=== PATIENT | male | born 1960 | race Caucasian/White ===

== ENCOUNTER 2023-06-10 16:04 | Outpatient (OUT) | payer BC, SELFPAY ==
[2023-06-10 17:29] LABS: Thyroid Stimulating Hormone 0.941 uIU/mL (0.358-3.740)
[2023-06-13 17:12] LABS: Thyroglobulin Antibody <1.0 IU/mL (0.0-0.9)
[2023-06-20 00:07] LABS: Thyroglobulin (TG-RIA) <2.0 ng/mL (.)
== END 2023-06-10 16:05 | disposition home or self-care (01) ==
LOC: LAB 16:08
PROVIDERS: Visit Provider Radiology Radiation Oncology
DX: Z85.850 Personal history of malignant neoplasm of thyroid (principal)
CPT/HCPCS: 36415; 84432; 84436; 84443; 86800

== ENCOUNTER 2024-01-16 08:46 | Outpatient (OUT) | payer BC, SELFPAY ==
--- NOTE | 2024-01-16 08:57 | ECG_ITS ---
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
[2024-01-16 09:38] LABS: Basophils Percent Auto 0.6 % (0.2-2.0); Eosinophils Absolute Auto 0.1 10^3/uL (0.0-0.7); Eosinophils Percent Auto 1.6 % (0.9-7.0); Hematocrit 47.3 % (42.0-54.0); Hemoglobin 15.8 g/dL (14.0-18.0); Immature Granulocytes Abs Auto 0.02 10^3/uL (0.00-0.03); Immature Granulocytes Pct Auto 0.3 % (0.0-0.5); Lymphocytes Percent Auto 16.1 % (20.5-60.0); Mean Corpuscular HGB Conc 33.4 g/dL (29.9-35.2); Mean Corpuscular Hemoglobin 29.2 pg (25.9-34.0); Mean Corpuscular Volume 87.4 fL (80.0-94.0); Mean Platelet Volume 11.1 fL (9.5-13.5); Monocytes Absolute Auto 0.4 10^3/uL (0.3-0.8); Monocytes Percent Auto 6.7 % (1.7-12.0); Neutrophils Absolute Auto 4.7 10^3/uL (1.4-6.5); Neutrophils Percent Auto 74.7 % (43.0-75.0); Platelet Count 210 10^3/uL (150-450); Red Blood Count 5.41 10^6/uL (4.70-6.10); White Blood Count 6.3 10^3/uL (4.0-11.0)
== END 2024-01-16 08:47 | disposition home or self-care (01) ==
LOC: PST 08:47
PROVIDERS: Visit Provider Otolaryngology
DX: Z01.810 Encounter for preprocedural cardiovascular examination (principal); Z01.812 Encounter for preprocedural laboratory examination; H69.93 Unspecified Eustachian tube disorder, bilateral
CPT/HCPCS: 36415; 85025; 93005

== ENCOUNTER 2024-01-31 09:35 | Day surgery (SDC) | payer BC, SELFPAY ==
[2024-01-16 09:25] VITALS: BP 156/92; PULSE 71; RESP 20; TEMP 36.3; O2SAT 95; BMI 40.5
[2024-01-31] VITALS (11 sets, daily range): BP systolic 106–156; BP diastolic 67–102; PULSE 60–72; TEMP 36.1–36.2; O2SAT 91–97; BMI 40.3
--- NOTE | 2024-01-31 | OP_ITS ---
OPERATION DATE: 01/31/2024 PRIMARY CARE PHYSICIAN: Ross Campoverde M.D. SURGEON: Adelina Godoy M.D. PREOPERATIVE DIAGNOSIS: Eustachian tube dysfunction. POSTOPERATIVE DIAGNOSIS: Eustachian tube dysfunction. PROCEDURE: Bilateral myringotomy and tubes with microdissection, placement of T-tubes and a nasal endoscopy. ANESTHESIA: General endotracheal. COMPLICATIONS: None. FINDINGS: Bilateral dry middle ears and no nasopharyngeal pathology evident. INDICATIONS: This 63-year-old man presented with eustachian tube dysfunction, unresponsive to aggressive medical management. He was brought to the OR for placement of T-tubes as well as to examine the nasopharynx and ensure that there was no carcinoma responsible for his eustachian tube dysfunction. PROCEDURE: Patient identified in the holding area and taken back to the OR where he was placed in the supine position. After induction of general anesthesia, Afrin soaked pledgets were placed in each side of the nose and attention was turned to the left ear. The ear was approached with the otomicroscope. An anterior radial myringotomy was performed and modified Jairo?s T-tube was folded and inserted in the middle ear using microdissection. Attention was then turned to the right ear and the same procedure performed. Once this was completed, the Afrin soaked pledgets were removed, and a 0 degree nasal endoscope was used to examine the nasopharynx bilaterally. There was no abnormality found. The patient was then awakened and taken to the recovery room in good condition. NEGAR
[2024-01-31] MEDS: LACTATED RINGER'S SOLUTION 1,000 ML 50 ML IV (09:52)
[2024-01-31] MEDS: SCOPOLAMINE 1 MG/3 DAYS TRANSDERM PATCH 1 PATCH TD (11:51)
[2024-01-31] MEDS: OXYMETAZOLINE HCL 0.05% NASAL SPRAY 30 SPRAY NS (12:49)
== END 2024-01-31 14:20 | disposition home or self-care (01) ==
PROVIDERS: Visit Provider Otolaryngology
PROC: (CPT 00126; principal; 2024-01-31 10:40)
PROC: (CPT 00126; 2024-01-31 10:40)
DX: H69.83 Other specified disorders of Eustachian tube, bilateral (principal); Z85.850 Personal history of malignant neoplasm of thyroid; H90.6 Mixed conductive and sensorineural hearing loss, bilateral; E89.0 Postprocedural hypothyroidism
CPT/HCPCS: 00126; 00160; 31231; 69436; 36415; J1094; J2704

== ENCOUNTER 2024-06-13 15:00 | Outpatient (OUT) | payer BC, SELFPAY | END 2024-06-13 15:01 | disposition home or self-care (01) | LOC: LAB 15:02 | PROVIDERS: Visit Provider Radiology Radiation Oncology | DX: Z85.850 Personal history of malignant neoplasm of thyroid (principal) | CPT/HCPCS: 36415; 84432; 84436; 84443; 86800 ==

== ENCOUNTER 2025-06-25 08:32 | Outpatient (OUT) | payer BC, SELFPAY ==
--- OUTSIDE RECORDS SUMMARY | 2025-06-25 08:37 | XMS_ITS | Encounter Summary ---
Author Organization [facility] Address [address] [address] Care Team Providers Care Mechanical Equipment Test Engineer Name Role Phone Ross Campoverde MD Primary Care Provider [phone] Ross Campoverde MD Unavailable [phone] Unallocated, Noms Provider Primary Care Provi ziggy Encounter Details Date Type Department Care Team (Late st Contact Info) Description 01/23/2024 Abstract [facility] [address] [place] [address] Aminata Fall MA Social History Tobacco Use Types Packs/Day Years Used Date Smoking Tobacco: Never Smokeless Tobacco: Never Alcohol Use Standard Drinks/Week Comments Yes 0 (1 standard drink = 0.6 oz pur e alcohol) PHQ-2 Answer Date Recorded Patient Health Questionnaire-2 Score 0 11/24/2023 Sex and Gender Information Value Date Recorded Sex Assigned at Not on file Legal Sex Male 6:53 PM EDT Gender Identity Not on file Sexual Orientation Not on file documented as of this encounter Plan of Treatment Not on file documented as of this encounter Visit Diagnoses Not on filedocumented in this encounter Care Teams Mechanical Equipment Test Engineer Relationship Specialty Start Date End Date Ross Campoverde MD [address] [address] PCP - General Family Medicine 12/02/23 03/06/24 Ross Campoverde MD [address] [address] PCP - Zoila Donahue 01/23/24 Unallocated, Noms Anay, [place] [address] PCP - General Family Medicine 03/07/24 documented as of this encounter
--- OUTSIDE RECORDS SUMMARY | 2025-06-25 08:37 | XMS_ITS | Encounter Summary ---
Author Organization [facility] Address [address] [place] [address] Care Team Providers Care Resource Forester Name Role Phone Ross Campoverde MD Primary Care Provider [phone] Ross Campoverde MD Unavailable [phone] Unallocated, Noms Provider Primary Care Provi ziggy Encounter Details Date Type Department Care Team (Late st Contact Info) Description 01/16/2024 Clinisync Result Encounter [facility] External Department Unsolicited Long Godoy MD [address] [facility] [address] [place] [address] Social History Tobacco Use Types Packs/Day Years [...] on file documented as of this encounter Procedures Procedure Name Priority Date/Time Associated Diagnosis Comments ECG 12-LEAD 01/16/2024 9:25 AM EDT documented in this encounter Results * ECG 12-LEAD (01/16/2024 9:25 AM EDT) Anatomical Region Laterality Modality Other 01/16/2024 9:25 AM EDT Narrative 01/16/2024 10:44 PM EDT The [address] [address] Electrocardiograph Report Signed Patient: Jose Luis Hernandez MR#: [id number] : 1960 Acct:[id number] Age/Sex: 63 / M ADM Date: 01/16/24 Loc: PST Attending Dr: Long Godoy M.D. Ordering Physician: Long Godoy M.D. 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 Signed By: 01/16/244 DD/ 0925 TD/TT: Fish Cake Maker: Procedure Note Radiology, Radiologist, MD - 01/16/[address] [address] Electrocardiograph Report Signed Patient: Jose Luis Hernandez RMR#: [id number] : 1960cct:[id number] Age/Sex: 63 / MADM Date: 01/16/24 Loc: PST Attending Dr: Long Godoy M.D. Ordering Physician: Long Godoy M.D. 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 Signed By:01/16/242243 DD/ 4 TD/TT: Fish Cake Maker: us Long Godoy MD [facility] Final Resul t documented in this encounter Visit Diagnoses Not on filedocumented in this encounter Care Teams Resource Forester Relationship Specialty Start Date End Date Ross Campoverde MD [address] [place] [address] PCP - General Family Medicine 12/02/23 03/06/24 Ross Campoverde MD [address] [place] [address] (Fax) PCP - Niles [employer] 01/23/24 Unallocated, Noms ProviderMD [address] [place] [address] PCP - General Family Medicine 03/07/24 documented as of this encounter
--- OUTSIDE RECORDS SUMMARY | 2025-06-25 08:38 | XMS_ITS | Clinical Summary ---
Author Organization [facility] Address [address] [place] [address] Care Team Providers Care Sql Database Administrator Name Role Phone Rima Martinez MD Primary Care Provider [phone] Allergies Active Allergy Reactions Criticality Noted Date Comments Penicillins Unknown 11/01/2014 Medications levothyroxine (SYNTHROID) 175 mcg tabletIndication s:Malignant neoplasm of thyroid gland (HCC) Take 1 tablet by mouth daily before breakfast. 90 tablet 3 05/15/2025 Active Active Problems Problem Noted Date Diagnosed Date History of thyroid cancer 06/12/2015 Encounters Date Type Department Care Team Description 05/15/2025 Refill Radiation Oncology [address] [place] [address] [place] [address] Chris Lugo MD Refill Request from Last 3 Months Social History Tobacco Use Types Packs/Day Years Used Date Smoking Tobacco: Never Smokeless Tobacco: Current Tobacco Cessation:Ready to Q uit: Not Asked; Counseling Given: Not Answered Alcohol Use Standard Drinks/Week Comments Not Asked 0 (1 standard drink = 0.6 oz pur e alcohol) PHQ-2 Answer Date Recorded PHQ-2 score 0 07/02/2024 Area Deprivation Index Answer Date Luca rded National Score (1-100), lower number is lower ri sk 73 06/20/2023 State Score (1-10), lower number is lower risk 6 06/20/2023 Data from: https://www.neighborhoodatlas.medicine.[facility].edu/. Last address used for calculation [address] 06/20/2023 Sex and Gender Information Value Date Recorded Sex Assigned at Not on file Legal Sex Male 10:13 AM EST Gender Identity Not on file Sexual Orientation Not on file Last Filed Vital Signs Vital Sign Reading Time Taken Comments Blood Pressure 152/88 07/02/2024 9:10 AM EDT Pulse 57 07/02/2024 9:10 AM EDT Temperature 36.4 C (97.5 F) 07/02/2024 9:10 AM EDT Respiratory Rate 16 07/02/2024 9:10 AM EDT Oxygen Saturation 97% 07/02/2024 9:10 AM EDT Inhaled Oxygen Concentration - - Weight 139.1 kg (306 lb 10.6 oz) 07/02/2024 9:10 AM EDT Height - - Body Mass Index - - Plan of Treatment Upcoming Encounters Date Type Department Care Team (Late st Contact Info) Description 07/01/2025 9:00 AM EDT Office Visit Radiation Oncology [address] [place] [address] Chris Lugo MD [address] [place] [address] 1 year follow up - labs at [facility] Due Date Last Done Comments Anxiety Screening 1977 Depression Screening 1977 Hepatitis C Screening 1977 DTaP,Tdap,Td Vaccine (1 - Tdap) [address] Colonography 2004 Cologuard (FIT-DNA) 2004 Colonoscopy 2004 Colorectal Cancer Screening 2004 Diabetes Screening 2004 Fecal Occult Blood 2004 Prostate Cancer Screening Discussion 2004 Sigmoidoscopy 2004 Pneumococcal Vaccine: 50+ (1 of 1 - PCV) 2009 Shingrix Vaccine (1 of 2) 2009 Advance Directive Discussion 10/24/2024 Influenza Vaccine (#1) 2025 RSV Vaccine (1 - 1-dose 75+ series) 2034 Insurance BLUE ACCESS PPO Care Teams Sql Database Administrator Relationship Specialty Start Date End Date Rima Martinez MD [address] [place] [address] PCP - General Family Medicine 12/15/11
--- OUTSIDE RECORDS SUMMARY | 2025-06-25 08:38 | XMS_ITS | Clinical Summary ---
Author Organization [facility] Address [address] [place] [address] Care Team Providers Care Senior Linux Systems Administrator Name Role Phone Ross Campoverde MD Unavailable [phone] Unallocated, Noms Provider Primary Care Provi ziggy Allergies Active Allergy Reactions Criticality Noted Date Comments Penicillins 11/01/2014 Other Reaction(s): Unknown Medications levothyroxine (Synthroid, Levoxyl) 175 MCG tablet Take 175 mcg by mouth in the morning. Take before meals. Active Active Problems Problem Noted Date Diagnosed Date ETD (Eustachian tube dysfunction), bilateral Mixed hearing loss, bilateral 12/05/2023 History of thyroid cancer 06/12/2015 Immunizations Immunization Administration Dates Next Due Pfizer Purple Cap SARS-CoV-2 Vaccination 021,01/30/2021,01/09/2021 Family History Medical History Relation Name Comments Diabetes Father Macular degeneration Mother Relation Name Status Comments Father Mother Alive Social History Tobacco Use Types Packs/Day Years Used Date Smoking Tobacco: Never Smokeless Tobacco: Never Tobacco Cessation:Counseling Given: Not Answered Alcohol Use Standard Drinks/Week Comments Yes 0 [...] Sign Reading Time Taken Comments Blood Pressure 151/86 08/28/2024 7:58 AM EST Pulse - - Temperature - - Respiratory Rate - - Oxygen Saturation - - Inhaled Oxygen Concentration - - Weight 140 kg (308 lb) 08/28/2024 7:58 AM EST Height 182.9 cm (6') 08/28/2024 7:58 AM EST Body Mass Index 41.77 08/28/2024 7:58 AM EST Plan of Treatment Health Maintenance Due Date Last Done Comments CT Colonography 1960 Colonoscopy 1960 Colorectal Cancer Screening 1960 FIT-DNA 1959 FIT 1959 FOBT 1960 Sigmoidoscopy 1960 Pneumococcal Vaccine: 65+ Years (1 of 1 - PCV) 009 Influenza Vaccine (#1) 2025 Insurance BC[employer] Member Subscriber Plan / Payer (Ef fective 2023-Present) Name:Jose Luis Hernandez Relation to Subscriber:Self Name:Jose Luis Hernandez Payer ID:Not on file Type:Not on file Address: [place] [phone] Care Teams Senior Linux Systems Administrator Relationship Specialty Start Date End Date Ross Campoverde MD [address] [place] [address] PCP - Altha Commercial 01/23/24 Unallocated, Noms Anay, [address] [facility] [place] [address] PCP - General Family Medicine 03/07/24
--- OUTSIDE RECORDS SUMMARY | 2025-06-25 08:47 | XMS_ITS | CCD ---
Author Organization [facility] Care Team Providers Care Health Services Rn Name Role Phone DR ROB LUGO Attending Unavailable HEYDI, DR ROB Correa Consulting Unavailable DR ROB LUGO Admitting Unavailable DR RIMA MARTINEZ Primary Care Unavailable Michelle CLARK, Rima Hawkins Primary Care Provider Rima Martinez MD Primary Care Provider Unavailable Primary Care Provider Ross Bonilla MD Primary Care Provider [phone] Rima Martinez MD Primary Care Provider RIMA MARTINEZ Primary Care Unavailable Chris LUGO Referring Unavailable Chris LUGO Attending Unavailable Ross Holliday MD Unavailable Unallocated , Benjamins Provider Primary Care Provi ziggy ROSS HOLLIDAY Attending Unavailable ROSS HOLLIDAY Attending Unavailable KAREEM DE LA O Attending Unavailable ROSS HOLLIDAY Referring Unavailable ADELINA WEEKS Attending Unavailable ADELINA WEEKS Attending Unavailable ROSA COYNE Attending Unavailable ISABELLEMISADELINA Attending Unavailable KAREEM DE LA O A Attending Unavailable ISABELLEMISJOYADELINA H Attending Unavailable ISABELLEMISJOYADELINA Gurvinder Attending Unavailable ISABELLEMISADELINA Attending Unavailable Allergies Allergy Classification Reported Allergen(s) Allergy Type Date of Onset Reaction(s) Facility (6 sources) Penicillins; Translations: [PENICILLINS] Drug Allergy 11-01-2014 Unknown [facility] (9 sources) Penicillins Drug Allergy 11-01-2014 [facility] (1 source) Penicillins Drug Allergy 11-01-2014 Unknown [facility] Medications Current Medications Medication Drug Class(es) Dates Sig (Normalized) Sig (Original) cefdinir 300 mg oral capsule (3 sources) Cephalosporin Antibacterial Start: 11-20-2023 End: 12-05-2023 take 1 capsule by mouth in the morning cefdinir (Omnicef) 300 MG capsule Take 300 mg by mouth in the morning and 300 mg before bedtime. 0 11/20/2023 12/05/2023 Discontinued (Therapy completed) cefuroxime 500 mg oral tablet (2 sources) Cephalosporin Antibacterial Start: 12-01-2023 End: 12-08-2023 take 1 tablet by mouth in the morning cefuroxime (Ceftin) 500 MG tablet Indications: Other infective acute otitis externa of left ear Take 1 tablet (500 mg) by mouth in the morning and 1 tablet (500 mg) before bedtime. Do all this for 7 days. 14 tablet 0 12/01/2023 12/08/2023 Active ciprofloxacin 3 mg/ml / dexamethasone 1 mg/ml otic suspension (5 sources) Corticosteroid, Quinolone Antimicrobial Start: 08-20-2024 End: 08-30-2024 ciprofloxacin-dexA METHasone (CiproDEX) otic suspension Indications: Chronic myringitis of right ear Administer 4 drops into each ear in the morning and 4 drops before bedtime. Do all this for 10 days. 7.5 mL 08/20/2024 08/30/2024 Active fluticasone propionate 0.05 mg/actuat metered dose nasal spray (2 sources) Corticosteroid Start: 12-05-2023 End: 12-04-2024 take 2 spray(s) nasal route in the morning fluticasone (Flonase) 50 MCG/ACT nasal spray Indications: OME (otitis media with effusion), bilateral Administer 2 sprays into each nostril in the morning. Shake gently. Before first use, prime pump. After use, clean tip and replace cap.. 16 g 11 12/05/2023 12/04/2024 Active levothyroxine sodium 0.175 mg oral tablet (19 sources) l-Thyroxine Start: 06-30-2021 End: 05-15-2025 take 1 tablet by mouth once daily before breakfast levothyroxine (SYNTHROID) 175 mcg tablet Indications: Malignant neoplasm of thyroid gland (HCC) Take 1 tablet by mouth daily before breakfast. 90 tablet 3 05/15/2025 Active Comment on above: Take 1 tablet by valdez th daily before breakfast. predniSONE 20 mg oral tablet (2 sources) Start: 12-05-2023 End: 12-11-2023 take 1 tablet by mouth in the morning predniSONE (Deltasone) 20 MG tablet Indications: OME (otitis media with effusion), bilateral Take 1 tablet (20 mg) by mouth in the morning and 1 tablet (20 mg) before bedtime. Do all this for 6 days. 12 tablet 0 12/05/2023 12/11/2023 Active Completed/Discontinued Medications Medication Drug Class(es) Dates Sig (Normalized) Sig (Original) hydrocortisone 10 mg/ml / neomycin 3.5 mg/ml / polymyxin b 17670 unt/ml otic suspension (1 source) Aminoglycoside Antibacterial, Polymyxin-class Antibacterial, Corticosteroid Start: 11-24-2023 End: 12-01-2023 neomycin-polymyx in-hydrocortison e (Cortisporin) [id number] otic suspension Indications: Other infective acute otitis externa of both ears Administer 3-4 drops into each ear in the morning and 3-4 drops in the evening and 3-4 drops before bedtime. Do all this for 7 days. 10 mL 0 11/24/2023 12/01/2023 Problems Active Problems Problem Classification Problem Date Documented Date Episodic/Chronic Cancer of thyroid (4 sources) Malignant tumor of thyroid gland; Translations: [Malignant neoplasm of thyroid gland] Chronic Other ear and sense organ disorders (10 sources) Mixed conductive and sensorineural hearing loss, bilateral; Translations: [Mixed conductive and sensorineural hearing loss, bilateral] Onset: 12-05-2023 12-05-2023 Chronic Other ear and sense organ disorders (2 sources) Bilateral hearing loss; Translations: [Unspecified hearing loss, bilateral] 08-20-2024 Chronic Other ear and sense organ disorders (2 sources) Chronic right myringitis; Translations: [Chronic myringitis, right ear] 08-20-2024 Chronic Other ear and sense organ disorders (2 sources) Bilateral chronic tympanitis; Translations: [Chronic myringitis, bilateral] 08-28-2024 Chronic Other ear and sense organ disorders (1 source) Acute infective otitis externa; Translations: [Other infective otitis externa, bilateral] 11-24-2023 Episodic Other injuries and conditions due to external causes (4 sources) Foreign body in left ear; Translations: [Foreign body in left ear, initial encounter] 08-20-2024 Episodic Past or Other Problems Problem Classification Problem Date Documented Da te Episodic/Chronic Cancer of thyroid (20 sources) Personal history of malignant neoplasm of thyroid; Translations: [History of malignant neoplasm of thyroid] Onset: 06-12-2015 Episodic Otitis media and related conditions (11 sources) Acute suppurative otitis media without spontaneous rupture of ear drum; Translations: [Acute suppurative otitis media without spontaneous rupture of ear drum, bilateral] Onset: 01-09-2024 11-24-2023 Episodic Results Test Name Value Interpretation Reference Range Facility CNOVon 07-02-2024 CNOV Office Visit (ADAIRA ) RICARDO HERNANDEZ ([id number]) 1960 M Date Time Provider Department 07/02/24 9:00 AM Chris LUGO During your visit today, we recorded the following information about you: Temperature Pulse Respiration Blood pressure 97.5 degrees 57/minute 16/minute 152/88 Weight 139.1 kg Chris Lugo MD 07/09/2024 8:15 AM Signed Radiation Oncology - Follow Up Note PATIENT NAME: Ricardo Hernandez PATIENT DIAGNOSIS: Papillary thyroid carcinoma and prior thyroidectomy and I-131 ablative therapy in August 2008. INTERVAL HISTORY: Doing well denies new problems. LABORATORY: 07/10/17 thyroglobulin less than 0.2. Thyroid antibody 6.4. T4 12.3 TSH 0.171 06/27/18 thyroglobulin less than 0.2. Thyroid antibody <1. freeT4 1.33 TSH 0.103 07/06/19 thyroglobulin less than 2.0 Thyroid antibody <1. T4 10.5 TSH 0.097 05/28/20 thyroglobulin less than 0.1. Thyroid antibody <1. T4 10.8 TSH 0.065 05/28/21 thyroglobulin less than 2.0. Thyroid antibody <1.0 T4 9.9TSH 0.206 thyroglobulin less than 2.0. Thyroid antibody <1.0 T4 11.0TSH 0.157 thyroglobulin less than 2.0. T4 8.6 TSH 0.941 06/13/24 thyroglobulin <0.1 Thyroid antibody <1.0 T4 11.2 TSH 0.13 ALLERGIES: ALLERGIES Allergen Reactions Penicillins Unknown MEDICATIONS: levothyroxine (SYNTHROID) 175 mcg tablet Take 1 tablet by mouth daily before breakfast. Review of Systems: PAIN ASSESSMENT: Negative for pain, history of chronic pain, or current treatment for a chronic pain condition. GENERAL: has had some wt loss-chnge diet and activity, no malaise or fevers. NECK: Negative for goiter, pain or significant neck swelling RESPIRATORY: Negative for cough, hemoptysis, wheezing, COPD, dyspnea or shortness of breath ENDOCRINE: Negative for cold or heat intolerance, polyuria or polydipsia. NEURO: No history of headaches, syncope, paralysis, seizures or tremors The remainder of the review of systems is negative. review of systems is negative. PHYSICAL EXAM: VS: BP 152/88 Pulse (!) 57 Temp 36.4 ?C (97.5 ?F) Resp 16 Wt (!) 139.1 kg (306 lb 10.6 oz) SpO2 97% KPS: 100 General Appearance: Well appearing, alert, in no acute distress, well-hydrated, well nourished.. Skin: Skin color, texture, turgor normal, no suspicious rashes or lesions. Neck: Negative findings: no asymmetry, masses, or scars, no adenopathy. ASSESSMENT AND PLAN: History of thyroid carcinoma with prior thyroidectomy and postoperative I-131 ablative treatment. Patient continues to do very well. Thyroglobulin undetectable. Appropriate TSH suppression/T4 replacement. Plan to see him back in follow-up in one year with thyroglobulin. Signed by: Chris Lugo MD cc: Rima Martinez MD [address] [place] [address] Portions of the above note extracted and edited from previous visit as well as active information included in the EMR. Referring Provider: Chris LUGO [[id number]] Allergies As of Date: 07/02/2024 Noted Allergy Reaction PENICILLINS 11/01/2014 16 - Unknown Date Reviewed: 07/02/2024 Reviewed by: Anne Lester RN - Fully Assessed Reason for Visit: Thyroid Cancer [879] Primary Visit Diagnosis:History of thyroid cancer [Z85.850] Order(s):T4/THYROXINE [SQT4] Order #: [id number] FUTURE THYROID STIMULATING HORMONE [SQTSH] Order #: [id number] FUTURE THYROGLOBULIN, SERUM WITH REFLEX TO IA OR LC-MS/MS [SQTHYRORF] Order #: [id number] FUTURE Prescriptions as of 07/09/2024 - levothyroxine (SYNTHROID) 175 mcg tablet Take 1 tablet by mouth daily before breakfast. Problem List As Of Date 07/02/2024 Noted Resolved History of thyroid cancer [Z85.850] 06/12/2015 Disposition: Return in about 1 year (around 07/02/2025). Follow-up and Disposition History for Encounter Date Provider Department Center 07/02/2024 [id number] LUGO [facility] Encounter Status:Closed by Chris LUGO on 07/09/24 Normal [facility] THYROGLOBULINon 06-12-2022 Thyroglobulin <2.0 Normal [facility] Comment on above: Result Comment: This test was developed and its performance characteristics determined by [facility]. It has not been cleared or approved by the Food and Drug Administration. Reference Range: Pubertal Children and Adults: <40 According to the National Academy of Clinical Biochemistry, the reference interval for Thyroglobulin (TG) should be related to euthyroid patients and not for patients who underwent thyroidectomy. TG reference intervals for these patients depend on the residual mass of the thyroid tissue left after surgery. Establishing a post-operative baseline is recommended. The assay quantitation limit is 2.0 ng/mL. Performed By: #### T KARINE #### [facility] [address] [place] [address] Dr. Angelita Kendall THYROGLOBULIN ABon Thyroglobulin Antibody <1.0 Normal 0.0-0.9 [facility] Comment on above: Result Comment: Thyr oglobulin Antibody measured by [facility] Methodology Performed By: #### T HYGAB #### [facility] [address] [id number] Angelita Kendall T4 [facility]on 06-05-2022 T4 [Mass/Vol] 11.0 ug/dL Normal 4.5-12.0 [facility] Comment on above: Performed By: #### T 4LC #### [facility] [address] [place], [place] [address] Dr. Angelita Kendall TSHon 06-04-2022 TSH 0.157 uIU/mL Critically low 0.358-3.740 [facility] Comment on above: Performed By: #### T SH #### [facility] [address] [place] [address] Dr. Angelita Kendall Vital Signs Date Time Vital Sign Value Performing Clinician Faci lity 08-28-2024 07:58-0500 Body height 182.9 cm Adelina Weeks MD Work Phone: [facility] 08-28-2024 07:58-0500 Body mass index (BMI) [Ratio] 41.77 kg/m2 Adelina Weeks MD Work Phone: [facility] 08-28-2024 07:58-0500 Body weight 139.71 kg Adelina Weeks MD Work Phone: [facility] 08-28-2024 07:58-0500 Diastolic blood pressure 86 mm[Hg] Adelina Weeks MD Work Phone: [facility] 08-28-2024 07:58-0500 Systolic blood pressure 151 mm[Hg] Adelina Weeks MD Work Phone: [facility] 08-20-2024 13:03-0400 Body height 182.9 cm Adelina Weeks MD Work Phone: [facility] 08-20-2024 13:03-0400 Body mass index (BMI) [Ratio] 42.31 kg/m2 Adelina Weeks MD Work Phone: [facility] 08-20-2024 13:03-0400 Body weight 141.52 kg Adelina Weeks MD Work Phone: [facility] 08-20-2024 13:03-0400 Diastolic blood pressure 77 mm[Hg] Adelina Weeks MD Work Phone: [facility] 08-20-2024 13:03-0400 Systolic blood pressure 128 mm[Hg] Adelina Weeks MD Work Phone: [facility] 07-02-2024 09:10-0400 Body temperature 97.5 [degF] KANWAL Lugo MD Work Phone: [facility] 07-02-2024 09:10-0400 Body weight 139.1 kg KANWAL Lugo MD Work Phone: [facility] 07-02-2024 09:10-0400 Diastolic blood pressure 88 mm[Hg] KANWAL Lugo MD Work Phone: [facility] 07-02-2024 09:10-0400 Heart rate 57 /min KANWAL Lugo MD Work Phone: [facility] 07-02-2024 09:10-0400 Respiratory rate 16 /min KANWAL Lugo MD Work Phone: [facility] 07-02-2024 09:10-0400 SaO2% (BldA) [Mass fraction] 97 % KANWAL Lugo MD Work Phone: [facility] 07-02-2024 09:10-0400 Systolic blood pressure 152 mm[Hg] KANWAL Lugo MD Work Phone: [facility] 12-05-2023 08:22-0500 Body height 182.9 cm Adelina Weeks MD Work Phone: [facility] 12-05-2023 08:22-0500 Body mass index (BMI) [Ratio] 41.23 kg/m2 Adelina Weeks MD Work Phone: [facility] 12-05-2023 08:22-0500 Body weight 137.89 kg Adelina Weeks MD Work Phone: [facility] 12-05-2023 08:22-0500 Diastolic blood pressure 93 mm[Hg] Adelina Weeks MD Work Phone: [facility] 12-05-2023 08:22-0500 Systolic blood pressure 157 mm[Hg] Adelina Weeks MD Work Phone: [facility] 11-24-2023 15:46-0500 Body height 182.9 cm Ross Holliday MD Work Phone: [facility] 11-24-2023 15:46-0500 Body mass index (BMI) [Ratio] 41.3 kg/m2 Ross Holliday MD Work Phone: [facility] 11-24-2023 15:46-0500 Body weight 138.12 kg Ross Holliday MD Work Phone: [facility] 06-20-2023 09:25-0400 Body temperature 98.01 [degF] KANWAL Lugo MD Work Phone: [facility] 06-20-2023 09:25-0400 Body weight 133.81 kg KANWAL Lugo MD Work Phone: [facility] 06-20-2023 09:25-0400 Diastolic blood pressure 80 mm[Hg] KANWAL Lugo MD Work Phone: [facility] 06-20-2023 09:25-0400 Heart rate 65 /min KANWAL Lugo MD Work Phone: [facility] 06-20-2023 09:25-0400 Respiratory rate 16 /min KANWAL Lugo MD Work Phone: [facility] 06-20-2023 09:25-0400 SaO2% (BldA) [Mass fraction] 97 % KANWAL Lugo MD Work Phone: [facility] 06-20-2023 09:25-0400 Systolic blood pressure 128 mm[Hg] KANWAL Lugo MD Work Phone: [facility] 06-21-2022 08:58-0400 Body temperature 97.5 [degF] KANWAL Lugo MD Work Phone: [facility] 06-21-2022 08:58-0400 Body weight 140.62 kg KANWAL Lugo MD Work Phone: [facility] 06-21-2022 08:58-0400 Diastolic blood pressure 85 mm[Hg] KANWAL Lugo MD Work Phone: [facility] 06-21-2022 08:58-0400 Heart rate 63 /min KANWAL Lugo MD Work Phone: [facility] 06-21-2022 08:58-0400 Respiratory rate 16 /min KANWAL Lugo MD Work Phone: [facility] 06-21-2022 08:58-0400 SaO2% (BldA) [Mass fraction] 97 % KANWAL Lugo MD Work Phone: [facility] 06-21-2022 08:58-0400 Systolic blood pressure 143 mm[Hg] KANWAL Lugo MD Work Phone: [facility] Encounters Encounter Date Encounter Type Care Provider Facility Start: 05-15-2025 End: 05-15-2025 Refill G Marco A Lugo MD Work Phone: Radiation Oncology Comment on above: Refill Request Start: 08-28-2024 End: 08-28-2024 Bamboo flowsheet Adelina Weeks MD Work Phone: [facility] Start: 08-28-2024 End: 08-28-2024 Bamboo flowsheet Adelina Weeks MD Work Phone: [facility] Start: 08-28-2024 End: 08-28-2024 Office outpatient visit 15 minutes Adelina Weeks MD Work Phone: [facility] Comment on above: Chronic myringitis, bilateral (Primary Dx); Foreign body of left ear, initial encounter Start: 08-28-2024 End: 08-28-2024 ambulatory ADELINA H TIMMIS Not Available Start: 08-20-2024 End: 08-20-2024 Bamallyn Weeks MD Work Phone: [facility] Start: 08-20-2024 End: 08-20-2024 Bamallyn Weeks MD Work Phone: [facility] Start: 08-20-2024 End: 08-20-2024 Office outpatient visit 25 minutes [facility] Comment on above: ETD (Eustachian tube dysfunction), bilateral (Primary Dx); Bilateral hearing loss, unspecified hearing loss type; Chronic myringitis of right ear; Foreign body of left ear, initial encounter Start: 08-20-2024 End: 08-20-2024 ambulatory ADELINA H TIMMIS Not Available Start: 07-02-2024 End: 07-02-2024 ambulatory RIMA MARTINEZ Facility:[facility] Start: 07-02-2024 End: 07-02-2024 Patient encounter procedure G Marco A Lugo MD Work Phone: Radiation Oncology Comment on above: History of thyroid c ancer (Primary Dx) Start: 05-31-2024 Refill G Mraco A giron MD Work Phone: Radiation Oncology Comment on above: Refill Request Start: 02-27-2024 End: 02-27-2024 ambulatory KAREEM DE LA O Not Available Start: 02-27-2024 End: 02-27-2024 ambulatory ADELINA H TIMMIS Not Available Start: 01-23-2024 End: 01-23-2024 ambulatory ROSA COYNE Not Available Start: 01-09-2024 End: 01-09-2024 ambulatory ADELINA H TIMMIS Not Available Start: 12-05-2023 End: 12-05-2023 Office outpatient new 45 minutes Adelina Weeks MD [facility] Comment on above: Mixed hearing loss, bilateral (Primary Dx); OME (otitis media with effusion), bilateral Start: 12-05-2023 End: 12-05-2023 ambulatory ADELINA WEEKS Not Available Start: 12-02-2023 End: 12-02-2023 ambulatory KAREEM DE LA O Not Available Start: 12-01-2023 End: 12-01-2023 ambulatory ROSS HOLLIDAY Not Available Start: 11-24-2023 End: 11-24-2023 Office outpatient visit 15 minutes Ross Holliday MD Work Phone: [facility] Comment on above: Non-recurrent acute suppurative otitis media of both ears without spontaneous rupture of tympanic membranes (Primary Dx); Other infective acute otitis externa of both ears Start: 11-24-2023 End: 11-24-2023 ambulatory ROSS HOLLIDAY Not Available Start: 11-24-2023 Bamboo flowsheet Ross mejia MD Work Phone: [facility] Start: 11-24-2023 Bamboo flowsheet Ross mejia MD Work Phone: [facility] Start: 06-20-2023 End: 06-20-2023 Patient encounter procedure Chris Lugo MD Work Phone: Radiation Oncology Comment on above: History of thyroid c ancer (Primary Dx) Start: 06-13-2023 Refill Chris giron MD Work Phone: Radiation Oncology Comment on above: Refill Request Start: 06-21-2022 End: 06-21-2022 Patient encounter procedure Chris Lugo MD Work Phone: Radiation Oncology Comment on above: History of thyroid c ancer (Primary Dx); Malignant neoplasm of thyroid gland (HCC) Start: 06-04-2022 End: 06-05-[address] ROB LUGO Facility:[facility] Procedures Date Procedure Procedure Detail Performing Clinician Start: 06-21-2022 Adult depression screening assessment KANWAL Lugo MD Work Phone: Plan of Treatment Date Care Activity Detail Author Start: 2034 RSV Vaccine (1 - 1-d ose 75+ series) RSV Vaccine (1 - 1-dose 75+ series) [facility] Start: 07-02-2025 End: 10-01-2025 Thyroglobulin and Thyrogobulin Ab panel - Serum or Plasma THYROGLOBULIN, SERUM WITH REFLEX TO IA OR LC-MS/MS Lab Routine History of thyroid cancer Expected: 07/02/2025 (Approximate), Expires: 10/01/2025 [facility] Comment on above: Expected: 07/02/2025 (Approximate), Expires: 10/01/2025 Start: 07-02-2025 End: 10-01-2025 Thyrotropin [Units/volume] in Serum or Plasma THYROID STIMULATING HORMONE Lab Routine History of thyroid cancer Expected: 07/02/2025 (Approximate), Expires: 10/01/2025 [facility] Comment on above: Expected: 07/02/2025 (Approximate), Expires: 10/01/2025 Start: 07-02-2025 End: 10-01-2025 Thyroxine (T4) [Mass/volume] in Serum or Plasma T4/THYROXINE Lab Routine History of thyroid cancer Expected: 07/02/2025 (Approximate), Expires: 10/01/2025 [facility] Work Phone: Comment on above: Expected: 07/02/2025 (Approximate), Expires: 10/01/2025 Start: 07-01-2025 End: 07-01-2025 Patient encounter procedure 07/01/2025 9:00 AM EDT Office Visit Radiation Oncology [address] [place] [address] Chris Lugo MD [address] [place] [address] 1 year follow up - labs at [place] Radiation Oncology Comment on above: 1 year follow up - l abs at [place] Start: 06-24-2025 Influenza vaccination Influenza Vacc ine (#1) [facility] Start: 10-24-2024 Advance Directive Discussion Advance Directive Discussion [facility] Start: 08-28-2024 End: 08-28-2024 Patient encounter procedure [facility] Comment on above: Arrived Start: 08-20-2024 End: 08-20-2024 Patient encounter procedure 08/20/2024 1:00 PM EDT Office Visit [facility] [address] [email or web address] [address] [place] [address] Adelina Weeks MD [address] [facility] [address] [place] [address] Arrived [facility] Comment on above: Arrived Start: 07-02-2024 End: 07-02-2024 Patient encounter procedure 07/02/2024 9:00 AM EDT Office Visit Radiation Oncology [address] [address] Chris Lugo MD [address] [place] [address] 1 year follow up - labs at [place] Radiation Oncology Comment on above: 1 year follow up - l abs at [place] Start: 06-24-2024 Covid-19 Vaccine ( season) Covid-19 Vaccine ( season) [facility] Start: 06-24-2024 Influenza vaccination Influenza Vacc ine (#1) [facility] Start: 06-13-2024 End: 08-13-2024 Thyroglobulin and Thyrogobulin Ab panel - Serum or Plasma THYROGLOBULIN, SERUM WITH REFLEX TO IA OR LC-MS/MS Lab Routine History of thyroid cancer Expected: 06/13/2024, Expires: 08/13/2024 [facility] Work Phone: Comment on above: Expected: 06/13/2024 , Expires: 08/13/2024 Start: 06-13-2024 End: 08-13-2024 Thyrotropin [Units/volume] in Serum or Plasma TSH BLD Lab Routine History of thyroid cancer Expected: 06/13/2024, Expires: 08/13/2024 [facility] Work Phone: Comment on above: Expected: 06/13/2024 , Expires: 08/13/2024 Start: 06-13-2024 End: 08-13-2024 Thyroxine (T4) [Mass/volume] in Serum or Plasma T4/THYROXINE BLOOD Lab Routine History of thyroid cancer Expected: 06/13/2024, Expires: 08/13/2024 [facility] Work Phone: Comment on above: Expected: 06/13/2024 , Expires: 08/13/2024 Start: 2024 Advance Directive Discussion Advance Directive Discussion [facility] Start: 2024 Pneumococcal Vaccine : 65+ (1 of 1 - PCV) Pneumococcal Vaccine: 65+ (1 of 1 - PCV) [facility] Start: 2024 Pneumococcal Vaccine : 65+ Years (1 of 1 - PCV) Pneumococcal Vaccine: 65+ Years (1 of 1 - PCV) [facility] Start: 01-23-2024 End: 01-23-2024 Patient encounter procedure 01/23/2024 9:30 AM EDT Office Visit [facility] [address] [place] [id number] Rosa Coyne, AUD [address] [facility] [place] [address] [facility] Start: 01-18-2024 End: 01-18-2024 Patient encounter procedure 01/18/2024 8:00 AM EDT Office Visit [facility] [address] [facility] [address] [place] [address] Adelina Weeks MD [address] [facility] [address] [place] [address] [facility] Start: 11-24-2023 End: 11-24-2023 Patient encounter procedure 11/24/2023 4:00 PM EST Office Visit [facility] [address] [place] [address] Ross Holliday MD [address] [place] [address] Arrived [facility] Comment on above: Arrived Start: 06-24-2023 Covid-19 Vaccine ( season) Covid-19 Vaccine () [facility] Start: 06-24-2023 Influenza vaccination [facility] Start: 06-21-2023 Adult depression screening assessment DEPRESSION SCREENING [facility] Start: 06-20-2023 End: 08-20-2023 Thyroglobulin Ab [Units/volume] in Serum or Plasma THYROGLOBULIN AB Lab Routine History of thyroid cancer Expected: 06/20/2023 (Approximate), Expires: 08/20/2023 [facility] Work Phone: Comment on above: Expected: 06/20/2023 (Approximate), Expires: 08/20/2023 Start: 06-20-2023 End: 08-20-2023 Thyroglobulin and Thyrogobulin Ab panel - Serum or Plasma THYROGLOBULIN BLD Lab Routine History of thyroid cancer Expected: 06/20/2023 (Approximate), Expires: 08/20/2023 [facility] Work Phone: Comment on above: Expected: 06/20/2023 (Approximate), Expires: 08/20/2023 Start: 06-20-2023 End: 08-20-2023 Thyrotropin [Units/volume] in Serum or Plasma TSH BLD Lab Routine History of thyroid cancer Expected: 06/20/2023 (Approximate), Expires: 08/20/2023 [facility] Work Phone: Comment on above: Expected: 06/20/2023 (Approximate), Expires: 08/20/2023 Start: 06-20-2023 End: 08-20-2023 Thyroxine (T4) [Mass/volume] in Serum or Plasma T4/THYROXINE BLOOD Lab Routine History of thyroid cancer Expected: 06/20/2023 (Approximate), Expires: 08/20/2023 [facility] Work Phone: Comment on above: Expected: 06/20/2023 (Approximate), Expires: 08/20/2023 Start: 10-24-2022 DEPRESSION ASSESSMENT DEPRESSION ASS ESSMENT [facility] Start: 06-24-2022 Influenza vaccination INFLUENZA (#1) [facility] Start: 2019 RSV Vaccine (1 - 1-d ose 60+ series) RSV Vaccine (1 - 1-dose 60+ series) [facility] Start: 2014 PROSTATE CANCER SCREENING DISCUSSION PROSTATE CANCER SCREENING DISCUSSION [facility] Start: 2014 Prostate specific antigen measurement Prostate Cancer Screening Discussion [facility] Start: 2009 Pneumococcal Vaccine : 50+ (1 of 1 - PCV) Pneumococcal Vaccine: 50+ (1 of 1 - PCV) [facility] Start: 2009 SHINGRIX VACCINE (1 of 2) SHINGRIX VACCINE (1 of 2) [facility] Start: 2004 COLOGUARD (FIT-DNA) COLOGUARD (FIT-D NA) [facility] Start: 2004 Colonoscopy COLONOSCOPY [facility] Start: 2004 COLORECTAL CANCER SCREENING COLORECTAL CANCER SCREENING [facility] Start: [address] COLONOGRAPHY [facility] Start: 2004 DIABETES SCREEN DIABETES SCREEN [facility] Start: 2004 Diabetes Screening Diabetes Screenin g [facility] Start: 2004 FECAL OCCULT BLOOD FECAL OCCULT BLOO D [facility] Start: 2004 Prostate specific antigen measurement Prostate Cancer Screening Discussion [facility] Start: 2004 Screening for malign ant neoplasm of colon [facility] Start: 2004 SIGMOIDOSCOPY SIGMOIDOSCOPY [facility] Start: 1994 Lipid panel Lipid Screening [facility] Start: 1994 LIPID SCREEN LIPID SCREEN [facility] Start: 1978 Urine microalbumin profile [facility] Start: 1977 Anxiety Screening Anxiety Screening [facility] Start: 1977 Depression Screening Depression Scre ening [facility] Start: 1977 HEPATITIS C SCREENING HEPATITIS C [facility] Start: 1977 Hepatitis C screening Hepatitis C [facility] Start: 1977 HIV SCREENING HIV SCREENING [facility] Start: 1977 HIV screening HIV Screening [facility] Start: 1959 COVID-19 VACCINE (#1) COVID-19 VACCI NE (#1) [facility] Start: 1959 Screening for malign ant neoplasm of colon [facility] Immunizations Immunization Date Immunization Notes Care Provider Rama tenorio 09-25-2021 Pfizer Purple Cap SARS-CoV-2 Vaccination Ross Holliday MD Work Phone: [facility] 01-30-2021 Pfizer Purple Cap SARS-CoV-2 Vaccination Ross Holliday MD Work Phone: [facility] 01-09-2021 Pfizer Purple Cap SARS-CoV-2 Vaccination Ross Holliday MD Work Phone: [facility] Payers Date Payer Category Payer [employer] [id number] 2023 Unknown [id number] 2020 Unknown [id number] 1959 Unknown [id number] 1959 Unknown [id number] 2.16.84 [id number] 1959 Unknown [id number] 2.16.84 [id number] 1959 Unknown [id number] 2.16.84 [id number] 1959 Unknown [id number] 2.16.84 [id number] 1959 Unknown [id number] 2.16.84 [id number] 1959 Unknown [id number] 2.16.84 [id number] 1959 Unknown [id number] 2.16.84 [id number] 1959 Unknown [id number] 2.16.84 [id number] 1959 Unknown [id number] 2.16.84 [id number] 1959 Unknown [id number] 2.16.84 [id number] 1959 Unknown [id number] 2.16.84 [id number] 1959 Unknown [id number] 2.16.84 [id number] Social History Date Type Detail Facility Start: 06-21-2022 End: 11-24-2023 Tobacco smoking status WAIS Never smoked tobacco [facility] Start: 06-21-2022 Tobacco use and exposure User of smo keless tobacco [facility] Start: 06-21-2022 End: 06-20-2023 Alcohol intake Not Asked [facility] Start: 1960 Sex Assigned At Not on file [facility] Start: 06-11-2022 End: 06-21-2022 Exposure to SARS-CoV-2 (event) Not sure [facility] Start: 06-21-2022 End: 06-20-2023 History of Social function [facility] Start: 06-21-2022 End: 06-20-2023 Tobacco use panel [facility] Adult Depression Screening Assessment 0 [facility] Tobacco smoking stat us WAIS Tobacco smoking consumption unknown [facility] Start: 11-24-2023 Tobacco use and exposure Smoke less tobacco non-user [facility] Start: 12-05-2023 End: 08-28-2024 Alcohol intake Current drinker of alcohol (finding) [facility] Functional Status Date Assessment Result Facility 11-01-2014 Are you deaf, or do you have serious difficulty hearing No 11/01/2014 10:01 AM Patrizia Red RN No [facility] 11-01-2014 Are you blind, or do you have serious difficulty seeing, even when wearing glasses No 11/01/2014 10:01 AM Patrizia Red RN No [facility] 11-01-2014 Do you have serious difficulty walking or climbing stairs No 11/01/2014 10:01 AM Patrizia Red RN No [facility] 11-01-2014 Do you have difficul ty dressing or bathing No 11/01/2014 10:01 AM Patrizia Red, UMBERTO No [facility] 11-01-2014 Because of a physica l, mental, or emotional condition, do you have difficulty doing errands alone such as visiting a physician's office or shopping No 11/01/2014 10:01 AM Patrizia Red RN No [facility] Mental Status Date Assessment Result Facility 11-01-2014 Because of a physica l, mental, or emotional condition, do you have serious difficulty concentrating, remembering, or making decisions No 11/01/2014 10:01 AM Patrizia Red RN No [facility] Clinical Notes 06-21-2022 to 08-28-2024 Adelina Weeks MD - 08/28/2024 8:00 AM Hai Weeks MD - 08/20/2024 1:00 PM Chris Kong MD - 07/02/2024 8:58 AM EDTTelephone Encounter - Anne Lester RN - 05/31/2024 9:43 AM EDT Note Date & Type Note Facility 08-28-2024 History of Presen t illness Narrative Images from the original note were not included. Subjective Patient ID: Ricardo Hernandez is a 64 y.o. male who presents for Ear Problem (Ear cleaning) F/U to debride left TM crust Family History Problem Relation Name Age of Onset Macular degeneration Mother Diabetes Father Active Ambulatory Problems Diagnosis Date Noted History of thyroid cancer 06/12/2015 Mixed hearing loss, bilateral 12/05/2023 ETD (Eustachian tube dysfunction), bilateral 01/09/2024 Resolved Ambulatory Problems Diagnosis Date Noted No Resolved Ambulatory Problems Past Medical History: Diagnosis Date Thyroid cancer ([facility]) Past Surgical History: Procedure Laterality Date BICEPS TENDON REPAIR Right THYROIDECTOMY TYMPANOSTOMY TUBE PLACEMENT 01/31/2024 Jayne MAN Allergies Allergen Reactions Penicillins Other Reaction(s): Unknown Current Outpatient Medications on File Prior to Visit Medication Sig Dispense Refill ciprofloxacin-dexAMETHasone (CiproDEX) otic suspension Administer 4 drops into each ear in the morning and 4 drops before bedtime. Do all this for 10 days. 7.5 mL 0 levothyroxine (Synthroid, Levoxyl) 175 MCG tablet Take 175 mcg by mouth in the morning. Take before meals. No current facility-administered medications on file prior to visit. Objective Last Recorded Vitals Vitals: 08/28/24 0758 BP: 151/86 ENT Physical Exam Constitutional Appearance: patient appears well-developed, well-nourished and well-groomed, Communication/Voice: communication appropriate for developmental age; vocal quality normal; Ear Ear comments: RT - TIP&P, dry. Scant granulation. LT Soften crust debrided. TIP&P, dry Patient ID: Ricardo Hernandez is a 64 y.o. male. Procedures Foreign body removed from the left ear canal under micro with a pic and suction Assessment/Plan Diagnoses and all orders for this visit: Chronic myringitis, bilateral Foreign body of left ear, initial encounter Crust debrided and tubes look good. Continue ciprodex till bottle gone documented in this encounter [facility] 08-20-2024 History of Presen t illness Narrative Subjective Patient ID: Ricardo Hernandez is a 64 y.o. male who presents for Ear Problem (Fluid RT ear ) Pt c/o nic HL and RT otorrhea Family History Problem Relation Name Age of Onset Macular degeneration Mother Diabetes Father Active Ambulatory Problems Diagnosis Date Noted History of thyroid cancer 06/12/2015 Mixed hearing loss, bilateral 12/05/2023 ETD (Eustachian tube dysfunction), bilateral 01/09/2024 Resolved Ambulatory Problems Diagnosis Date Noted No Resolved Ambulatory Problems Past Medical History: Diagnosis Date Thyroid cancer (CMS/HCC) Past Surgical History: Procedure Laterality Date BICEPS TENDON REPAIR Right THYROIDECTOMY TYMPANOSTOMY TUBE PLACEMENT 01/31/2024 Jayne MAN Allergies Allergen Reactions Penicillins Other Reaction(s): Unknown Current Outpatient Medications on File Prior to Visit Medication Sig Dispense Refill levothyroxine (Synthroid, Levoxyl) 175 MCG tablet Take 175 mcg by mouth in the morning. Take before meals. No current facility-administered medications on file prior to visit. Objective Last Recorded Vitals Vitals: 08/20/24 1303 BP: 128/77 ENT Physical Exam Constitutional Appearance: patient appears well-developed, well-nourished and well-groomed, Communication/Voice: communication appropriate for developmental age; vocal quality normal; Ear Ear comments: RT - Granulation on TM. TIP&P. LT large crust around tube Assessment/Plan Diagnoses and all orders for this visit: ETD (Eustachian tube dysfunction), bilateral Bilateral hearing loss, unspecified hearing loss type Chronic myringitis of right ear Foreign body of left ear, initial encounter Tx with ciprodex nic. Rt for infection and left to soften crust. F/U next week in [place] to debride left ear documented in this encounter [facility] 07-02-2024 Note HNO ID: [id number] Author: Chris LUGO MD Service: ? Author Type: Physician Type: Progress Notes Filed: 07/09/2024 08:15 Note Text: Radiation Oncology - Follow Up Note PATIENT NAME: Ricadro Hernandez PATIENT DIAGNOSIS: Papillary thyroid carcinoma and prior thyroidectomy and I-131 ablative therapy in August 2008. INTERVAL HISTORY: Doing well denies new problems. LABORATORY: 07/10/17 thyroglobulin less than 0.2. Thyroid antibody 6.4. T4 12.3 TSH 0.171 06/27/18 thyroglobulin less than 0.2. Thyroid antibody <1. freeT4 1.33 TSH 0.103 07/06/19 thyroglobulin less than 2.0 Thyroid antibody <1. T4 10.5 TSH 0.097 05/28/20 thyroglobulin less than 0.1. Thyroid antibody <1. T4 10.8 TSH 0.065 05/28/21 thyroglobulin less than 2.0. Thyroid antibody <1.0 T4 9.9TSH 0.206 thyroglobulin less than 2.0. Thyroid antibody <1.0 T4 11.0TSH 0.157 thyroglobulin less than 2.0. T4 8.6 TSH 0.941 06/13/24 thyroglobulin <0.1 Thyroid antibody <1.0 T4 11.2 TSH 0.13 ALLERGIES: ALLERGIES Allergen Reactions Penicillins Unknown MEDICATIONS: levothyroxine (SYNTHROID) 175 mcg tablet Take 1 tablet by mouth daily before breakfast. Review of Systems: PAIN ASSESSMENT: Negative for pain, history of chronic pain, or current treatment for a chronic pain condition. GENERAL: has had some wt loss-chnge diet and activity, no malaise or fevers. NECK: Negative for goiter, pain or significant neck swelling RESPIRATORY: Negative for cough, hemoptysis, wheezing, COPD, dyspnea or shortness of breath ENDOCRINE: Negative for cold or heat intolerance, polyuria or polydipsia. NEURO: No history of headaches, syncope, paralysis, seizures or tremors The remainder of the review of systems is negative. review of systems is negative. PHYSICAL EXAM: VS: BP 152/88 Pulse (!) 57 Temp 36.4 ?C (97.5 ?F) Resp 16 Wt (!) 139.1 kg (306 lb 10.6 oz) SpO2 97% KPS: 100 General Appearance: Well appearing, alert, in no acute distress, well-hydrated, well nourished.. Skin: Skin color, texture, turgor normal, no suspicious rashes or lesions. Neck: Negative findings: no asymmetry, masses, or scars, no adenopathy. ASSESSMENT AND PLAN: History of thyroid carcinoma with prior thyroidectomy and postoperative I-131 ablative treatment. Patient continues to do very well. Thyroglobulin undetectable. Appropriate TSH suppression/T4 replacement. Plan to see him back in follow-up in one year with thyroglobulin. Signed by: Chris Lugo MD cc: Rima Martinez MD [address] [place] [phone] Portions of the above note extracted and edited from previous visit as well as active information included in the EMR. [facility] 07-02-2024 History of Presen t illness Narrative Images from the original note were not included. Radiation Oncology - Follow Up Note PATIENT NAME: Ricardo Hernandez PATIENT DIAGNOSIS: Papillary thyroid carcinoma and prior thyroidectomy and I-131 ablative therapy in August 2008. INTERVAL HISTORY: Doing well denies new problems. LABORATORY: 07/10/17 thyroglobulin less than 0.2. Thyroid antibody 6.4. T4 12.3 TSH 0.171 06/27/18 thyroglobulin less than 0.2. Thyroid antibody <1. freeT4 1.33 TSH 0.103 07/06/19 thyroglobulin less than 2.0 Thyroid antibody <1. T4 10.5 TSH 0.097 05/28/20 thyroglobulin less than 0.1. Thyroid antibody <1. T4 10.8 TSH 0.065 05/28/21 thyroglobulin less than 2.0. Thyroid antibody <1.0 T4 9.9TSH 0.206 thyroglobulin less than 2.0. Thyroid antibody <1.0 T4 11.0TSH 0.157 thyroglobulin less than 2.0. T4 8.6 TSH 0.941 06/13/24 thyroglobulin <0.1 Thyroid antibody <1.0 T4 11.2 TSH 0.13 ALLERGIES: ALLERGIES Allergen Reactions Penicillins Unknown MEDICATIONS: levothyroxine (SYNTHROID) 175 mcg tablet Take 1 tablet by mouth daily before breakfast. Review of Systems: PAIN ASSESSMENT: Negative for pain, history of chronic pain, or current treatment for a chronic pain condition. GENERAL: has had some wt loss-chnge diet and activity, no malaise or fevers. NECK: Negative for goiter, pain or significant neck swelling RESPIRATORY: Negative for cough, hemoptysis, wheezing, COPD, dyspnea or shortness of breath ENDOCRINE: Negative for cold or heat intolerance, polyuria or polydipsia. NEURO: No history of headaches, syncope, paralysis, seizures or tremors The remainder of the review of systems is negative. review of systems is negative. PHYSICAL EXAM: VS: BP 152/88 Pulse (!) 57 Temp 36.4 C (97.5 F) Resp 16 Wt (!) 139.1 kg (306 lb 10.6 oz) SpO2 97% KPS: 100 General Appearance: Well appearing, alert, in no acute distress, well-hydrated, well nourished.. Skin: Skin color, texture, turgor normal, no suspicious rashes or lesions. Neck: Negative findings: no asymmetry, masses, or scars, no adenopathy. ASSESSMENT AND PLAN: History of thyroid carcinoma with prior thyroidectomy and postoperative I-131 ablative treatment. Patient continues to do very well. Thyroglobulin undetectable. Appropriate TSH suppression/T4 replacement. Plan to see him back in follow-up in one year with thyroglobulin. Signed by: Chris Lugo MD cc: Rima Martinez MD [address] [facility] [[email or web address] [place] [address] Portions of the above note extracted and edited from previous visit as well as active information included in the EMR. documented in this encounter [facility] 05-31-2024 Telephone encount er Note Please sign if agreeable. Anne Lester RN [facility] 05-31-2024 Miscellaneous Notes Formattin g of this note might be different from the original. Please sign if agreeable. Anne Lester RN documented in this encounter [facility] 12-05-2023 History of Presen t illness Narrative Subjective Patient ID: Ricardo Hernandez is a 63 y.o. male who presents for Hearing Loss (Audio 12/02/23. Had some hearing loss over past yr. But lost hearing following virus in Oct 2023). Pt had URI in Oct and noted a marked decrease in his hearing nic. Audio shows severe nic mixed HL with symmetric nerve line and ABG Review of Systems All other systems reviewed and are negative. Family History Problem Relation Name Age of Onset Macular degeneration Mother Diabetes Father Active Ambulatory Problems Diagnosis Date Noted History of thyroid cancer 06/12/2015 Resolved Ambulatory Problems Diagnosis Date Noted No Resolved Ambulatory Problems Past Medical History: Diagnosis Date Thyroid cancer ([facility]) Past Surgical History: Procedure Laterality Date BICEPS TENDON REPAIR Right THYROIDECTOMY Allergies Allergen Reactions Penicillins Other Reaction(s): Unknown Current Outpatient Medications on File Prior to Visit Medication Sig Dispense Refill cefuroxime (Ceftin) 500 MG tablet Take 1 tablet (500 mg) by mouth in the morning and 1 tablet (500 mg) before bedtime. Do all this for 7 days. 14 tablet 0 levothyroxine (Synthroid, Levoxyl) 175 MCG tablet Take 175 mcg by mouth in the morning. Take before meals. [DISCONTINUED] cefdinir (Omnicef) 300 MG capsule Take 300 mg by mouth in the morning and 300 mg before bedtime. [] fgsrxomo-ldwfdctcl-kyvyelisvn sone (Cortisporin) 3.5-50925-1 otic suspension Administer 3-4 drops into each ear in the morning and 3-4 drops in the evening and 3-4 drops before bedtime. Do all this for 7 days. 10 mL 0 No current facility-administered medications on file prior to visit. Objective Last Recorded Vitals Vitals: 12/05/23 0822 BP: (!) 157/93 ENT Physical Exam Constitutional Appearance: patient appears well-developed and well-nourished, Head and Face Appearance: head appears normal and face appears atraumatic; Ear Ear comments: Nic ME effusion Nose External Nose: nares patent bilaterally; external nose normal; Internal Nose: nasal mucosa normal; Oral Cavity/Oropharynx Lips: normal; Teeth: normal; Gums: gingiva normal; Tongue: normal; Oral mucosa: normal; Hard palate: normal; Neck Neck: neck normal; neck palpation normal; Thyroid: thyroid normal; Respiratory Inspection: breathing unlabored; normal breathing rate; Auscultation: breath sounds are clear; Cardiovascular Inspection: extremities are warm and well perfused; no peripheral edema present; Auscultation: regular rate and rhythm; Assessment/Plan Diagnoses and all orders for this visit: Mixed hearing loss, bilateral OME (otitis media with effusion), bilateral Nic ABG due to OME. Tx with flonase and prednisone. Finish abx. BM&T if persists. Pt would also clearly benefit from nic RODRIGUEZ due to baseline SNHL documented in this encounter [facility] 11-24-2023 History of Presen t illness Narrative Patient ID: Ricardo Hernandez is a 63 y.o. male who presents for: Upper Respiratory Infection Patient complains of symptoms of a URI, follow up on a URI. Symptoms include ear pain and drainage . Onset of symptoms was a few days ago, and has been unchanged since that time. Treatment to date: antibiotics from and no better. Review of Systems Constitutional: Negative for chills and fever. HENT: Positive for congestion. Negative for ear pain, sinus pressure, sinus pain and sore throat. Respiratory: Positive for cough. Negative for shortness of breath and wheezing. Neurological: Positive for headaches. Negative for light-headedness. Objective In general the patient is pleasant and in no acute distress. The right ear has a mild amount of erythema and very mild amount of debris in the canal. The TM appears fairly translucent and somewhat retracted. The left ear has a moderate amount of swelling along with debris and cerumen. I was only able to manually remove a small amount of this. I could not see down to the TM. Bilateral nares demonstrate inflamed mucosa. Oropharynx has moist mucosa there is no specific evidence of thrush. There is mild erythema of the pharynx. Shoddy bilateral anterior cervical adenopathy. No signs of respiratory distress. Patient is speaking full sentences. There are symmetrical breath sounds. No rhonchi or rales are appreciated. No wheezes. Skin is warm and dry Visit Vitals Ht 6' Wt 304 lb 8 oz BMI 41.30 kg/m Smoking Status Never BSA 2.65 m Allergies Allergen Reactions Penicillins Other Reaction(s): Unknown Current Outpatient Medications Medication Instructions cefdinir (OMNICEF) 300 mg, Oral, 2 times daily levothyroxine (SYNTHROID, LEVOXYL) 175 mcg, Oral, Daily before breakfast Assessment/Plan Diagnoses and all orders for this visit: Non-recurrent acute suppurative otitis media of both ears without spontaneous rupture of tympanic membranes Acute problem that was reported at the urgent care. The right TM is visualized and there is no fluid layer or obvious discoloration is just somewhat dull and retracted. This could have been infected. The left TM at this point I cannot even see. The patient is Definitely having a hard time hearing me though. He still has Cefdinir and will continue to take this oral antibiotic. Other infective acute otitis externa of both ears - qswrbxfz-owtvcfnqd-nqfouletfl sone (Cortisporin) 3.5-04381-4 otic suspension; Administer 3-4 drops into each ear in the morning and 3-4 drops in the evening and 3-4 drops before bedtime. Do all this for 7 days. The right ear canal has a mild amount of otitis externa. The left ear canal however has both cerumen and debris. We will go ahead and start the drops for the ear canal and I will see him in a couple days and reevaluate this. documented in this encounter [facility] 06-20-2023 History of Presen t illness Narrative Images from the original note were not included. Radiation Oncology - Follow Up Note PATIENT NAME: Ricardo Hernandez PATIENT DIAGNOSIS: Papillary thyroid carcinoma and prior thyroidectomy and I-131 ablative therapy in August 2008. INTERVAL HISTORY: Doing well denies new problems. LABORATORY: 07/10/17 thyroglobulin less than 0.2. Thyroid antibody 6.4. T4 12.3 TSH 0.171 06/27/18 thyroglobulin less than 0.2. Thyroid antibody <1. freeT4 1.33 TSH 0.103 07/06/19 thyroglobulin less than 2.0 Thyroid antibody <1. T4 10.5 TSH 0.097 05/28/20 thyroglobulin less than 0.1. Thyroid antibody <1. T4 10.8 TSH 0.065 05/28/21 thyroglobulin less than 2.0. Thyroid antibody <1.0 T4 9.9TSH 0.206 thyroglobulin less than 2.0. Thyroid antibody <1.0 T4 11.0TSH 0.157 thyroglobulin less than 2.0. T4 8.6 TSH 0.941 ALLERGIES: ALLERGIES Allergen Reactions Penicillins Unknown MEDICATIONS: levothyroxine (SYNTHROID) 175 mcg tablet Take 1 tablet by mouth daily before breakfast. Review of Systems: PAIN ASSESSMENT: Negative for pain, history of chronic pain, or current treatment for a chronic pain condition. GENERAL: has had some wt loss-chnge diet and activity, no malaise or fevers. NECK: Negative for goiter, pain or significant neck swelling RESPIRATORY: Negative for cough, hemoptysis, wheezing, COPD, dyspnea or shortness of breath ENDOCRINE: Negative for cold or heat intolerance, polyuria or polydipsia. NEURO: No history of headaches, syncope, paralysis, seizures or tremors The remainder of the review of systems is negative. review of systems is negative. PHYSICAL EXAM: VS: BP 128/80 Pulse 65 Temp 36.7 C (98 F) Resp 16 Wt 133.8 kg (295 lb) SpO2 97% KPS: 100 General Appearance: Well appearing, alert, in no acute distress, well-hydrated, well nourished.. Skin: Skin color, texture, turgor normal, no suspicious rashes or lesions. Neck: Negative findings: no asymmetry, masses, or scars, no adenopathy. ASSESSMENT AND PLAN: History of thyroid carcinoma with prior thyroidectomy and postoperative I-131 ablative treatment. Patient continues to do very well. Thyroglobulin undetectable. Appropriate TSH suppression/T4 replacement. Plan to see him back in follow-up in one year with thyroglobulin. Signed by: Chris Lugo MD cc: Rima Martinez MD [address] [place] [phone] Portions of the above note extracted and edited from previous visit as well as active information included in the EMR. documented in this encounter [facility] 06-21-2022 History of Presen t illness Narrative Images from the original note were not included. Radiation Oncology - Follow Up Note PATIENT NAME: Ricardo Hernandez PATIENT DIAGNOSIS: Papillary thyroid carcinoma and prior thyroidectomy and I-131 ablative therapy in August 2008. INTERVAL HISTORY: Doing well denies new problems. LABORATORY: 07/10/17 thyroglobulin less than 0.2. Thyroid antibody 6.4. T4 12.3 TSH 0.171 06/27/18 thyroglobulin less than 0.2. Thyroid antibody <1. freeT4 1.33 TSH 0.103 07/06/19 thyroglobulin less than 2.0 Thyroid antibody <1. T4 10.5 TSH 0.097 05/28/20 thyroglobulin less than 0.1. Thyroid antibody <1. T4 10.8 TSH 0.065 05/28/21 thyroglobulin less than 2.0. Thyroid antibody <1.0 T4 9.9TSH 0.206 thyroglobulin less than 2.0. Thyroid antibody <1.0 T4 11.0TSH 0.157 ALLERGIES: ALLERGIES Allergen Reactions Penicillins Unknown MEDICATIONS: levothyroxine (SYNTHROID) 175 mcg tablet Take 1 tablet by mouth daily before breakfast. Review of Systems: PAIN ASSESSMENT: Negative for pain, history of chronic pain, or current treatment for a chronic pain condition. GENERAL: No weight loss, malaise or fevers. NECK: Negative for goiter, pain or significant neck swelling RESPIRATORY: Negative for cough, hemoptysis, wheezing, COPD, dyspnea or shortness of breath ENDOCRINE: Negative for cold or heat intolerance, polyuria or polydipsia. NEURO: No history of headaches, syncope, paralysis, seizures or tremors The remainder of the review of systems is negative. review of systems is negative. PHYSICAL EXAM: VS: BP 143/85 Pulse 63 Temp 36.4 C (97.5 F) Resp 16 Wt (!) 140.6 kg (310 lb) SpO2 97% KPS: 100 General Appearance: Well appearing, alert, in no acute distress, well-hydrated, well nourished.. Skin: Skin color, texture, turgor normal, no suspicious rashes or lesions. Neck: Negative findings: no asymmetry, masses, or scars, no adenopathy. ASSESSMENT AND PLAN: History of thyroid carcinoma with prior thyroidectomy and postoperative I-131 ablative treatment. Patient continues to do very well. Thyroglobulin undetectable. Appropriate TSH suppression/T4 replacement. Plan to see him back in follow-up in one year with thyroglobulin. Signed by: Chris Lugo MD cc: Rima Martinez MD [address] [place] [phone] Portions of the above note extracted and edited from previous visit as well as active information included in the EMR. documented in this encounter [facility] Evaluation note Diagnosis History of thyroid cancer- Primary Personal history of malignant neoplasm of thyroid Malignant neoplasm of thyroid gland (HCC) Malignant neoplasm of thyroid gland [facility] Malignant neoplasm of thyroid gland (HCC) [facility] History of thyroid cancer- Primary Personal history of malignant neoplasm of thyroid [facility] Diagnosis Non-recurrent acute suppurative otitis media of both ears without spontaneous rupture of tympanic membranes- Primary Other infective acute otitis externa of both ears documented in this encounter [facility]* Diagnosis Mixed hearing loss, bilateral- Primary OME (otitis media with effusion), bilateral documented in this encounter [facility]* Diagnosis Malignant neoplasm of thyroid gland (HCC) Malignant neoplasm of thyroid gland [facility] Diagnosis History of thyroid cancer- Primary Personal history of malignant neoplasm of thyroid [facility]* Diagnosis ETD (Eustachian tube dysfunction), bilateral- Primary Bilateral hearing loss, unspecified hearing loss type Chronic myringitis of right ear Foreign body of left ear, initial encounter documented in this encounter [facility]* Diagnosis Chronic myringitis, bilateral- Primary Foreign body of left ear, initial encounter documented in this encounter [facility]* Diagnosis Malignant neoplasm of thyroid gland (HCC) Malignant neoplasm of thyroid gland documented in this encounter [facility] Summary Purpose Family History No Family History Records FoundNo Family History Records FoundNo Family History Records Found Advance Directives No Advanced Directives Records FoundNo Advanced Directives Records FoundNo Advanced Directives Records Found Additional Source Comments (unrecognized sect ion and content) No Status Records FoundNo Status Records FoundNo Status Records Found INFORMATION SOURCE (unrecogn ized section and content) DATE CREATED AUTHOR 06/17/2022 [facility] DATE CREATED AUTHOR AUTHOR'S ORGANIZ ATION 07/10/2024 [facility] DATE CREATED AUTHOR AUTHOR'S ORGANIZ ATION 08/29/2024 [facility] EPIC Source Comments (unrecognize d section and content) In the event this informatio n is protected by the Federal Confidentiality of Alcohol and Drug Abuse Patient Records regulations: The Federal rules restrict any use of the information to criminally investigate or prosecute any alcohol or drug abuse patient.[facility] the event this information is protected by the Federal Confidentiality of Alcohol and Drug Abuse Patient Records regulations: The Federal rules restrict any use of the information to criminally investigate or prosecute any alcohol or drug abuse patient.[facility] the event this information is protected by the Federal Confidentiality of Alcohol and Drug Abuse Patient Records regulations: The Federal rules restrict any use of the information to criminally investigate or prosecute any alcohol or drug abuse patient.[facility] the event this information is protected by the Federal Confidentiality of Alcohol and Drug Abuse Patient Records regulations: The Federal rules restrict any use of the information to criminally investigate or prosecute any alcohol or drug abuse patient.[facility] the event this information is protected by the Federal Confidentiality of Alcohol and Drug Abuse Patient Records regulations: The Federal rules restrict any use of the information to criminally investigate or prosecute any alcohol or drug abuse patient.[facility] the event this information is protected by the Federal Confidentiality of Alcohol and Drug Abuse Patient Records regulations: The Federal rules restrict any use of the information to criminally investigate or prosecute any alcohol or drug abuse patient.[facility] Reason for Visit (unrecogniz ed section and content) Reason Comments Radiotherapy On-treatment Visit Reason Onset Date Comments Refill Request 06/13/2023 Reason Comments Thyroid Cancer Reason Comments URI Reason Comments Hearing Loss Audio 12/02/23. Had so me hearing loss over past yr. But lost hearing following virus in Oct 2023 Reason Onset Date Comments Refill Request 05/31/2024 Reason Comments Ear Problem Fluid RT ear Reason Comments Ear Problem Ear cleaning Reason Onset Date Comments Refill Request 05/15/2025 Care Teams (unrecognized sec tion and content) Health Services Rn Relationship Specialty Start Date End Date Rima Martinez MD [address] [place] [address] PCP - General Family Practice 12/15/11 Health Services Rn Relationship Specialty Start Date End Date Rima Martinez MD [address] [place] [address] PCP - General Family Medicine 12/15/11 Health Services Rn Relationship Specialty Start Date End Date Rima Martinez MD [address] [place] [address] PCP - General Family Medicine 12/15/11 Health Services Rn Relationship Specialty Start Date End Date Ross Holliday MD [address] [place] [phone] (Fax) PCP - General Family Medicine 12/02/23 Health Services Rn Relationship Specialty Start Date End Date Rima Martinez MD [address] [place] [address] PCP - General Family Medicine 12/15/11 Health Services Rn Relationship Specialty Start Date End Date Rima Martinez MD [address] [place] [address] PCP - General Family Medicine 12/15/11 Health Services Rn Relationship Specialty Start Date End Date Ross Holliday MD [address] [place] [address] (Fax) PCP - [employer] [facility] [employer] 01/23/24 UnallocatedJordan MD [address] [place] [address] PCP - General Family Medicine 03/07/24 Health Services Rn Relationship Specialty Start Date End Date Ross Holliday MD [address] [place] [address] (Fax) PCP - [employer] [facility] [employer] 01/23/24 UnallocatedJordan MD [address] [place] [id number] PCP - General Family Medicine 03/07/24 Health Services Rn Relationship Specialty Start Date End Date Ross Holliday MD [address] [place] [address] (Fax) PCP - [employer] 01/23/24 UnallocatedJordan MD [address] [place] [phone] PCP - General Family Medicine 03/07/24 Health Services Rn Relationship Specialty Start Date End Date Ross Holliday MD [address] [phone] (Fax) PCP - [employer] 01/23/24 Unallocated, Jordan Cueva MD [address] [place] [address] PCP - General Family Medicine 03/07/24 Health Services Rn Relationship Specialty Start Date End Date Rima Martinez MD [address] [place] [address] PCP - General Family Medicine 12/15/11 FOR RECORDS PERTAINING TO PATIENTS WHO ARE OR HAVE BEEN ENROLLED IN A CHEMICAL DEPENDENCY/SUBSTANCEABUSE PROGRAM, SOME INFORMATION MAY BE OMITTED. This clinical summary was aggregated from multiple sources. Caution should be exercised in using it in the provision of clinical care. This summary normalizes information from multiple sources, and as a consequence, information in this document may materially change the coding, format and clinical context of patient data. In addition, data may be omitted in some cases. CLINICAL DECISIONS SHOULD BE BASED ON THE PRIMARY CLINICAL RECORDS. [facility]. provides no warranty or guarantee of the accuracy or completeness of information in this document.
[2025-06-25 09:46] LABS: Thyroid Stimulating Hormone 0.030 uIU/mL (0.358-3.740)
== END 2025-06-25 08:33 | disposition home or self-care (01) ==
PROVIDERS: Visit Provider Radiology Radiation Oncology
DX: Z85.850 Personal history of malignant neoplasm of thyroid (principal)
CPT/HCPCS: 36415; 84432; 84436; 84443; 86800